=== PATIENT | female | born 1990 | race Caucasian/White ===

== ENCOUNTER 2018-04-28 03:49 | Emergency (ER) | payer OTHER ==
--- NOTE | 2018-04-28 04:02 | PDOC ---
History of Present Illness - General Chief Complaint: Pain, Acute Stated Complaint: ABDOMINAL PAIN Time Seen by Provider: 04/28/18 04:01 - History of Present Illness Initial Comments: 04/28/18 04:26 The patient is a 28 year old female with PMH of left ovarian cyst, gallstones, who presented to ED complaininf of severe abdominal pain that has been present for the past 3 weeks but got significantly worse 3 hours ago. She states that it is located on left side of his body, radiating to mid abdomen and left flank. She vomited multiple times, non bloody non bilious. The patient states that she was recently in one of the hospital in [place] and was told that has stomach ulcers and discharged on Pepsid. She just finished menstrual period, no dysuria, vaginal bleeding, discharge, fever, chills. She denies renal colic in the past, PUD, sexually active with her partner. 04/28/18 04:34 Past History - Past Medical History Allergies/Adverse Reactions: Allergies Allergy/AdvReac Type Severity Reaction Status Date / Time No Known Allergies Allergy Verified 04/28/18 04:15 Home Medications: Ambulatory Orders NK [No Known Home Medication] 04/28/18 Review of Systems - Review of Systems Able to Perform ROS?: Yes Constitutional: Yes: Symptoms Reported, See HPI HEENTM: No: Symptoms Reported Respiratory: No: Symptoms reported Cardiac (ROS): No: Symptoms Reported ABD/GI: Yes: Symptoms Reported, See HPI, Nausea, Vomiting. No: Constipated, Diarrhea Neurological: No: Symptoms reported *Physical Exam - Physical Exam General Appearance: Yes: Nourished, Appropriately Dressed, Apparent Distress HEENT: positive: EOMI, DEMETRICE Respiratory/Chest: positive: Lungs Clear, Normal Breath Sounds. negative: Respiratory Distress Cardiovascular: positive: Regular Rhythm, Regular Rate, S1, S2. negative: Murmur Female Pelvic Exam: positive: normal external exam, normal adnexa, normal size ovaries. negative: discharge, lesions, adnexal tenderness, vaginal bleeding Gastrointestinal/Abdominal: positive: Tender (left upper quadrant), Guarding, Rebound (LUQ), Tenderness Musculoskeletal: positive: CVA Tenderness (on left) Neurologic: positive: instrument inspector II-XII NML intact, Fully Oriented, Motor Strength 5/5 ED Treatment Course - LABORATORY CBC & Chemistry Diagram: 04/28/18 04:47 04/28/18 04:47 Medical Decision Making - Medical Decision Making 04/28/18 04:31 The patient presents to ED complaining of severe abdominal pain. Differential diagnosis includes ovarian torsion, gastric ulcer, perforation, renal colic, gallstones. We ordered CBC, CMP, UA, Urine test. Imaging studies: transvaginal US , CT of her abdomen with IV contrast. She was given one liter of NS, Tylenol IV , Zofran. 04/28/18 04:39 Morphine 4 mg IV for severe pain ordered. 04/28/18 06:29 CT abdomen official read is pending, labs notable for WBC 14.3 *DC/Admit/Observation/Transfer Diagnosis at time of Disposition: Abdominal pain - Referrals - Patient Instructions - Post Discharge Activity
[2018-04-28] MEDS ORDERED: ONDANSETRON 4 MG/2 ML VIAL IVPUSH ONE (04:18)
[2018-04-28] MEDS ORDERED: SODIUM CHLORIDE 0.9% 1000 ML INFUS.BAG IV ONE (04:18)
[2018-04-28 04:19] VITALS: BMI 32.2
[2018-04-28] MEDS ORDERED: ONDANSETRON 4 MG/2 ML VIAL ONE (04:24)
[2018-04-28] MEDS ORDERED: ACETAMINOPHEN 1000 MG/100 ML VIAL (NON FORMULARY) IVPB ONE (04:25)
[2018-04-28] MEDS ORDERED: ACETAMINOPHEN INJECTION 100 ML IVPB ONE (04:25)
--- NOTE | 2018-04-28 04:38 | PDOC ---
Attending Attestation - Resident Resident Name: Pat Arroyo - ED Attending Attestation I have performed the following: I have examined & evaluated the patient, The case was reviewed & discussed with the resident, I agree w/resident's findings & plan
[2018-04-28] MEDS ORDERED: morphine CARPU-JECT 4 MG/1 ML DISP.SYRIN IVPUSH ONE (04:40)
[2018-04-28] MEDS ORDERED: morphine SULFATE 4 MG/ML VIAL ONE (05:06)
[2018-04-28 05:12] LABS: BASO % 0.3 % (0-2.0); EOS % 1.8 % (0-4.5); HEMATOCRIT 44.8 % (32.4-45.2); HEMOGLOBIN 14.8 GM/dL (10.7-15.3); LYMPH % 48.3 % (8-40); MCH 28.3 pg (25.7-33.7); MCHC 33.1 g/dl (32.0-36.0); MEAN CELL VOLUME 85.6 fl (80-96); MONO % 8.6 % (3.8-10.2); PLATELET COUNT 406 K/MM3 (134-434); RBC 5.23 M/mm3 (3.60-5.2); RDW 12.9 % (11.6-15.6); WHITE BLOOD COUNT 14.3 K/mm3 (4.0-10.0)
[2018-04-28 05:33] LABS: ALBUMIN 4.6 g/dl (3.4-5.0); ALK PHOS 61 U/L (45-117); ANION GAP 10 MMOL/L (8-16); BILIRUBIN,TOTAL 0.2 mg/dL (0.2-1); BLOOD UREA NITROGEN 11 mg/dL (7-18); CALCIUM 9.2 mg/dL (8.5-10.1); CHLORIDE 106 mmol/L (98-107); CO2 24 mmol/L (21-32); CREATININE 0.9 mg/dL (0.55-1.3); GLUCOSE,RANDOM 99 mg/dL (74-106); POTASSIUM 3.8 mmol/L (3.5-5.1); SGOT/AST 14 U/L (15-37); SGPT/ALT 20 U/L (13-61); SODIUM 140 mmol/L (136-145); TOT PROT 7.6 g/dl (6.4-8.2)
[2018-04-28] MEDS ORDERED: KETOROLAC TROMETHAMINE 30 MG/1 ML VIAL IVPUSH ONE (06:47)
[2018-04-28] MEDS ORDERED: MAG HYDROX/AL HYDROX/SIMETH 30 ML UNIT-DOSE CUP PO ONE (06:48)
[2018-04-28] MEDS ORDERED: MAG HYDROX/AL HYDROX/SIMETH 30 ML UNIT-DOSE CUP ONE (06:51)
[2018-04-28] MEDS ORDERED: KETOROLAC TROMETHAMINE 30 MG/1 ML VIAL ONE (06:51)
[2018-04-28 07:29] LABS: URINE APPEARANCE CLEAR; URINE BILIRUBIN NEGATIVE (<2.0 mg/dL); URINE COLOR STRAW; URINE GLUCOSE (UA) NEGATIVE (NEGATIVE); URINE KETONE NEGATIVE (NEGATIVE); URINE LEUK ESTERASE NEGATIVE (NEGATIVE); URINE NITRITE NEGATIVE (NEGATIVE); URINE PROTEIN NEGATIVE (NEGATIVE); URINE UROBILINOGEN NEGATIVE mg/dL (0.2-1.0)
[2018-04-28 07:40] LABS: EPI CELLS RARE /HPF (FEW); URINE BACTERIA RARE /hpf (NONE SEEN); URINE MUCUS RARE
[2018-04-28 08:34] VITALS: BP 100/63; PULSE 57; TEMP 97.2
--- NOTE | 2018-04-28 09:16 | PDOC ---
*Physical Exam - Vital Signs Last Vital Signs Temp Pulse Resp BP Pulse Ox 97.2 F L 57 L 18 100/63 98 04/28/18 08:33 04/28/18 08:33 04/28/18 08:33 04/28/18 08:33 04/28/18 08:33 ED Treatment Course - LABORATORY CBC & Chemistry Diagram: 04/28/18 04:47 04/28/18 04:47 - ADDITIONAL ORDERS Additional order review: Laboratory Results 04/28/18 04/28/18 04/28/18 06:45 06:45 04:47 Sodium Potassium Chloride Carbon Dioxide Anion Gap BUN Creatinine Creat Clearance w eGFR Random Glucose Calcium Total Bilirubin AST ALT Alkaline Phosphatase Total Protein Albumin Serum , Qual Negative Urine Color Straw Urine Appearance Clear Urine pH 7.0 Ur Specific [place] 1.035 Urine Protein Negative Urine Glucose (UA) Negative Urine Ketones Negative Urine Blood 2+ H Urine Nitrite Negative Urine Bilirubin Negative Urine Urobilinogen Negative Ur Leukocyte Esterase Negative Urine WBC (Auto) 1 Urine RBC (Auto) <1 Ur Epithelial Cells Rare Urine Bacteria Rare Urine Mucus Rare Urine HCG, Qual Negative 04/28/18 04:47 Sodium 140 Potassium 3.8 Chloride 106 Carbon Dioxide 24 Anion Gap 10 BUN 11 Creatinine 0.9 Creat Clearance w eGFR > 60 Random Glucose 99 Calcium 9.2 Total Bilirubin 0.2 AST 14 L ALT 20 Alkaline Phosphatase 61 Total Protein 7.6 Albumin 4.6 Serum , Qual Urine Color Urine Appearance Urine pH Ur Specific [place] Urine Protein Urine Glucose (UA) Urine Ketones Urine Blood Urine Nitrite Urine Bilirubin Urine Urobilinogen Ur Leukocyte Esterase Urine WBC (Auto) Urine RBC (Auto) Ur Epithelial Cells Urine Bacteria Urine Mucus Urine HCG, Qual 04/28/18 04:47 RBC 5.23 H MCV 85.6 MCHC 33.1 RDW 12.9 MPV 8.0 Neutrophils % 41.0 L Lymphocytes % 48.3 H Monocytes % 8.6 Eosinophils % 1.8 Basophils % 0.3 - Medications Given in the ED: ED Medications Discontinued Medications Generic Name Dose Route Start Last Admin Trade Name Freq PRN Reason Stop Dose Admin Acetaminophen 1,000 mg 04/28/18 04:25 04/28/18 04:34 Ofirmev Injection - IVPB 04/28/18 04:26 1,000 mg ONCE ONE Administration Al Hydroxide/Mg Hydroxide 30 ml 04/28/18 06:48 04/28/18 06:56 Mylanta Oral Suspension - PO 04/28/18 06:49 30 ml ONCE ONE Administration Ketorolac Tromethamine 30 mg 04/28/18 06:47 04/28/18 06:54 Toradol Injection - IVPUSH 04/28/18 06:48 30 mg ONCE ONE Administration Morphine Sulfate 4 mg 04/28/18 04:40 04/28/18 05:35 Morphine Injection - IVPUSH 04/28/18 04:41 4 mg ONCE ONE Administration Ondansetron HCl 4 mg 04/28/18 04:18 04/28/18 04:33 Zofran Injection IVPUSH 04/28/18 04:19 4 mg ONCE ONE Administration Sodium Chloride 1,000 ml 04/28/18 04:18 04/28/18 04:27 Normal Saline - IV 04/28/18 04:19 1,000 ml ONCE ONE Administration Medical Decision Making - Medical Decision Making 04/28/18 09:[address] Phyllis sagastume 28 yo female presents to the ED with 1 month of worsening LUQ abdominal pain. pt abdominal CT shows normal appendix, gallbladder without evidence of obstruction or colitis 2.6 cm bartholin's cyst visualized which is unrelated to todays complaint. Advised to see her CORE MANAGER if this becomes a concern or to come back to the ED if she develops pain in the area. Pt AP improved with tylenol and toradol. Agrees to follow up with PCP and keep her GI appointment May 04 to discuss AP. Motrin 600mg sent to her pharmacy. Strict return precautions given incase of early presentation of appendicitis or other abdominal pathology *DC/Admit/Observation/Transfer Diagnosis at time of Disposition: Abdominal pain Qualifiers: Abdominal location: unspecified location Qualified Code(s): R10.9 - Unspecified abdominal pain - Discharge Dispostion Disposition: HOME Condition at time of disposition: Stable Decision to Admit order: No - Referrals - Patient Instructions Additional Instructions: Please keep your appointment with your GI doctor May 04 and discuss your abdominal pain. Follow up with your primary care doctor within the next 24 -48 hours. Take Motrin 600 mg 3 times a day as needed for pain relief. Please return to the emergency room for new or worsening symptoms including but not limited to: severe abdominal pain not relieved by medications, high fevers, vomiting or generalized weakness. Thank you - Post Discharge Activity
--- NOTE | 2018-04-28 17:10 | EKG ---
Test Reason : Blood Pressure : / mmHG Vent. Rate : 052 BPM Atrial Rate : 052 BPM P-R Int : 148 ms QRS Dur : 088 ms QT Int : 440 ms P-R-T Axes : 064 044 031 degrees QTc Int : 409 ms SINUS BRADYCARDIA NONSPECIFIC T WAVE ABNORMALITY ABNORMAL ECG NO PREVIOUS ECGS AVAILABLE Confirmed by MD EILEEN, TUAN ([id number]) on 04/28/2018 5:10:14 PM Referred By: Confirmed By:TUAN ARELLANO MD
== END 2018-04-28 09:39 | disposition home or self-care (01) ==
LOC: JER 03:49
PROC: 3E033GC Introduction of Other Therapeutic Substance into Peripheral Vein, Percutaneous Approach (ICD-10-PCS; principal; 2018-04-28)
PROC: 3E0333Z Introduction of Anti-inflammatory into Peripheral Vein, Percutaneous Approach (ICD-10-PCS; 2018-04-28)
PROC: 3E033NZ Introduction of Analgesics, Hypnotics, Sedatives into Peripheral Vein, Percutaneous Approach (ICD-10-PCS; 2018-04-28)
PROC: 3E033NZ Introduction of Analgesics, Hypnotics, Sedatives into Peripheral Vein, Percutaneous Approach (ICD-10-PCS; 2018-04-28)
DX: R10.9 Unspecified abdominal pain (principal); N75.0 Cyst of Bartholin's gland
CPT/HCPCS: 36415; 74177-TC; 76830-TC; 80053; 81003; 81015; 84703; 85025; 93005; 93010; 96374; 96375; 99283-25; J0131; J7030

== ENCOUNTER 2018-04-29 02:35 | Emergency (ER) | payer OTHER ==
[2018-04-29 03:02] VITALS: BMI 32.2
[2018-04-29] MEDS ORDERED: KETOROLAC TROMETHAMINE 30 MG/1 ML VIAL IVPUSH ONE (03:26)
[2018-04-29] MEDS ORDERED: SODIUM CHLORIDE 1,000 ML IV STA ×2 (03:26→10:08)
[2018-04-29] MEDS ORDERED: ONDANSETRON 4 MG/2 ML VIAL IVPUSH ONE (03:26)
[2018-04-29] MEDS ORDERED: diazePAM CARPU-JECT 10 MG/2 ML DISP.SYRIN IVPUSH ONE (03:27)
[2018-04-29] MEDS ORDERED: morphine CARPU-JECT 2 MG/1 ML DISP.SYRIN IVPUSH ONE (03:28)
--- NOTE | 2018-04-29 03:45 | PDOC ---
History of Present Illness - General Chief Complaint: Back Pain Stated Complaint: BACK PAIN Time Seen by Provider: 04/29/18 03:11 History Source: Patient, Old Records Exam Limitations: No Limitations - History of Present Illness Initial Comments: 04/29/18 03:28 HISTORY OF PRESENT ILLNESS: This is a 28-year-old female denies medical history presents emergency department for evaluation of left flank pain starting approximately 3:00 on the afternoon of 04/28. Patient states she was laying in bed when she woke up and when she tried to stand the pain came on suddenly which she describes as a sharp pain rated 9/10. States the pain worsens with she moves or walks. She reports the pain radiates down to her left buttock. Patient reports she was seen and evaluated for abdominal pain on the morning of 04/28 for which she states had a negative ultrasound and CAT scan. No recent travel or sick contacts. PAST MEDICAL HISTORY: Denies past medical history SURGICAL HISTORY: Denies ALLERGIES: No known drug allergies REVIEW OF SYSTEMS General/Constitutional: Denies fever or chills. Denies weakness, weight change. HEENT: Denies change in vision. Denies ear pain or discharge. Denies sore throat. Cardiovascular: Denies chest pain or shortness of breath. Respiratory: Denies cough, wheezing, or hemoptysis. Gastrointestinal: Denies vomiting, diarrhea or constipation. Denies rectal bleeding. +nausea. Genitourinary: Denies dysuria, frequency, or change in urination. +left flank pain Musculoskeletal: Denies joint or muscle swelling or pain. Denies neck pain. Skin and breasts: Denies rash or easy bruising. Neurologic: Denies headache, vertigo, loss of consciousness, or loss of sensation. Psychiatric: Denies depression or anxiety. Endocrine: Denies increased thirst. Denies abnormal weight change. Hematologic/Lymphatic: Denies anemia, easy bleeding, or history of blood clots. Allergic/Immunologic: Denies hives or skin allergy. Denies latex allergy. PHYSICAL EXAM General Appearance: Well-appearing, appropriately dressed. No apparent distress , no intoxication. Respiratory/Chest: Lungs CTAB. No shortness of breath, chest tenderness, respiratory distress, accessory muscle use. No crackles, rales, rhonchi, stridor , wheezing, dullness Cardiovascular: RRR. S1, S2. No JVD, murmur, bradycardia, tachycardia. Gastrointestinal/Abdominal: Normal bowel sounds. Obese abdomen soft, non- distended. Diffuse tenderness worse in LUQ and suprapubic area. No organomegaly , pulsatile mass, guarding, hernia, hepatomegaly, splenomegaly. Musculoskeletal/Extremities: Normal inspection. FROM of all extremities, normal capillary refill. Pelvis Stable. Left CVA tenderness. No tenderness to extremities, pedal edema, swelling, erythema or deformity. No palpable muscle spasms present. Increased pain elicited with flexion of left hip. Neurologic: cocoa roaster II-XII intact. Fully oriented, alert. Appropriate mood/affect. Motor strength 5/5. No appreciable EOM palsy, facial droop or sensory deficit. Past History - Past Medical History Allergies/Adverse Reactions: Allergies Allergy/AdvReac Type Severity Reaction Status Date / Time No Known Allergies Allergy Verified 04/29/18 03:02 Home Medications: Ambulatory Orders Ibuprofen [Motrin -] 600 mg PO TID #30 tablet 04/28/18 COPD: No CHF: No - Surgical History Appendectomy: No Cholecystectomy: No Neurologic Surgery: No - Immunization History Immunization Up to Date: No - Suicide/Smoking/Psychosocial Hx Smoking History: Never smoked Have you smoked in the past 12 months: No Hx Alcohol Use: No Drug/Substance Use Hx: No Substance Use Type: None *Physical Exam - Vital Signs Last Vital Signs Temp Pulse Resp BP Pulse Ox 99.0 F 80 18 118/75 99 04/29/18 03:00 04/29/18 03:00 04/29/18 03:00 04/29/18 03:00 04/29/18 03:00 Moderate Sedation - Procedure Monitoring Vital Signs: Procedure Monitoring Vital Signs Temperature 99.0 F 04/29/18 03:00 Pulse Rate 80 04/29/18 03:00 Respiratory Rate 18 04/29/18 03:00 Blood Pressure 118/75 04/29/18 03:00 O2 Sat by Pulse Oximetry (%) 99 04/29/18 03:00 ED Treatment Course - LABORATORY CBC & Chemistry Diagram: 04/29/18 04:10 04/29/18 04:10 Medical Decision Making - Medical Decision Making 04/29/18 03:45 A/P: 28-year-old female with sudden onset left flank pain radiating to her Left CVA tenderness Normoactive bowel sounds Abdomen diffusely tender worse in the left upper quadrant and suprapubic Patient had normal transvaginal ultrasound and CT abdomen and pelvis on 04/28. DDx: Gerd, pancreatitis, UTI, renal stone, gastritis, MSK NPO,urine, blood, analgesia, reevaluation 04/29/18 06:55 Pt signed out to MICK Gleason. *DC/Admit/Observation/Transfer Diagnosis at time of Disposition: Abdominal pain - Discharge Dispostion Disposition: HOME Condition at time of disposition: Improved - Referrals Referrals: Jacky Lugo MD [Staff Physician] - Mary Cordova MD [Staff Physician] - - Patient Instructions Printed Discharge Instructions: DI for Abdominal Pain-Adult Additional Instructions: Discharge Instructions: -The cat scan of your abdomen was normal -Please follow up with your regular doctor and stomach doctor tomorrow -Return to the ER with any worsening or concerning symptoms - Post Discharge Activity
[2018-04-29] MEDS ORDERED: KETOROLAC TROMETHAMINE 30 MG/1 ML VIAL ONE (03:54)
[2018-04-29] MEDS ORDERED: MORPHINE SULFATE 2 MG/ML VIAL ONE (03:54)
[2018-04-29] MEDS ORDERED: ONDANSETRON 4 MG/2 ML VIAL ONE (03:55)
[2018-04-29 04:42] LABS: BASO % 0.3 % (0-2.0); EOS % 2.3 % (0-4.5); HEMATOCRIT 40.4 % (32.4-45.2); HEMOGLOBIN 14.4 GM/dL (10.7-15.3); LYMPH % 48.6 % (8-40); MCHC 35.5 g/dl (32.0-36.0); MEAN CELL VOLUME 84.4 fl (80-96); MEAN PLT VOLUME 8.2 fl (7.5-11.1); MONO % 7.9 % (3.8-10.2); NEUT % 40.9 % (42.8-82.8); PLATELET COUNT 399 K/MM3 (134-434); RBC 4.79 M/mm3 (3.60-5.2); RDW 12.7 % (11.6-15.6); WHITE BLOOD COUNT 10.4 K/mm3 (4.0-10.0)
[2018-04-29 04:44] LABS: URINE APPEARANCE CLEAR; URINE BILIRUBIN NEGATIVE (<2.0 mg/dL); URINE COLOR LTYELLOW; URINE GLUCOSE (UA) NEGATIVE (NEGATIVE); URINE KETONE NEGATIVE (NEGATIVE); URINE LEUK ESTERASE NEGATIVE (NEGATIVE); URINE NITRITE NEGATIVE (NEGATIVE); URINE PROTEIN NEGATIVE (NEGATIVE); URINE UROBILINOGEN NEGATIVE mg/dL (0.2-1.0)
[2018-04-29] MEDS ORDERED: morphine CARPU-JECT 4 MG/1 ML DISP.SYRIN IVPUSH ONE (04:47)
[2018-04-29] MEDS ORDERED: morphine SULFATE 4 MG/ML VIAL ONE (04:49)
[2018-04-29 04:53] LABS: EPI CELLS RARE /HPF (FEW); URINE MUCUS RARE
[2018-04-29 05:51] LABS: ALBUMIN 3.7 g/dl (3.4-5.0); ALK PHOS 49 U/L (45-117); ANION GAP 7 MMOL/L (8-16); BILIRUBIN,TOTAL 0.2 mg/dL (0.2-1); BLOOD UREA NITROGEN 13 mg/dL (7-18); CHLORIDE 108 mmol/L (98-107); CO2 26 mmol/L (21-32); CREATININE 0.7 mg/dL (0.55-1.3); GLUCOSE,RANDOM 72 mg/dL (74-106); LIPASE 139 U/L (73-393); POTASSIUM 4.5 mmol/L (3.5-5.1); SGOT/AST 14 U/L (15-37); SGPT/ALT 16 U/L (13-61); SODIUM 140 mmol/L (136-145)
--- NOTE | 2018-04-29 08:09 | PDOC ---
ED Treatment Course - LABORATORY CBC & Chemistry Diagram: 04/29/18 04:10 04/29/18 04:10 - ADDITIONAL ORDERS Additional order review: Laboratory Results 04/29/18 04/29/18 04:10 04:10 Sodium 140 Potassium 4.5 Chloride 108 H Carbon Dioxide 26 Anion Gap 7 L BUN 13 Creatinine 0.7 Creat Clearance w eGFR > 60 Random Glucose 72 L Calcium 9.0 Total Bilirubin 0.2 AST 14 L ALT 16 Alkaline Phosphatase 49 Total Protein 6.0 L Albumin 3.7 Lipase 139 Urine Color Ltyellow Urine Appearance Clear Urine pH 6.0 Ur Specific [place] 1.018 Urine Protein Negative Urine Glucose (UA) Negative Urine Ketones Negative Urine Blood 2+ H Urine Nitrite Negative Urine Bilirubin Negative Urine Urobilinogen Negative Ur Leukocyte Esterase Negative Urine WBC (Auto) 2 Urine RBC (Auto) 1 Ur Epithelial Cells Rare Urine Mucus Rare 04/29/18 04:10 RBC 4.79 MCV 84.4 MCHC 35.5 RDW 12.7 MPV 8.2 Neutrophils % 40.9 L Lymphocytes % 48.6 H Monocytes % 7.9 Eosinophils % 2.3 Basophils % 0.3 - Medications Given in the ED: ED Medications Discontinued Medications Generic Name Dose Route Start Last Admin Trade Name Freq PRN Reason Stop Dose Admin Diazepam 5 mg 04/29/18 03:27 04/29/18 03:30 Valium Injection - IVPUSH 04/29/18 03:28 Not Given ONCE ONE Sodium Chloride 1,000 mls @ 1,000 mls/hr 04/29/18 03:26 04/29/18 03:45 Normal Saline - IV 04/29/18 04:25 1,000 mls/hr ASDIR STA Administration Ketorolac Tromethamine 30 mg 04/29/18 03:26 04/29/18 03:30 Toradol Injection - IVPUSH 04/29/18 03:27 Not Given ONCE ONE Morphine Sulfate 2 mg 04/29/18 03:28 04/29/18 03:45 Morphine Injection - IVPUSH 04/29/18 03:29 2 mg ONCE ONE Administration Morphine Sulfate 4 mg 04/29/18 04:47 04/29/18 04:53 Morphine Injection - IVPUSH 04/29/18 04:48 4 mg ONCE ONE Administration Ondansetron HCl 4 mg 04/29/18 03:26 04/29/18 03:45 Zofran Injection IVPUSH 04/29/18 03:27 4 mg ONCE ONE Administration <Ling Madsen - Last Filed: 04/29/18 09:34> - LABORATORY CBC & Chemistry Diagram: 04/29/18 04:10 04/29/18 04:10 - ADDITIONAL ORDERS Additional order review: Laboratory Results 04/29/18 04/29/18 04:10 04:10 Sodium 140 Potassium 4.5 Chloride 108 H Carbon Dioxide 26 Anion Gap 7 L BUN 13 Creatinine 0.7 Creat Clearance w eGFR > 60 Random Glucose 72 L Calcium 9.0 Total Bilirubin 0.2 AST 14 L ALT 16 Alkaline Phosphatase 49 Total Protein 6.0 L Albumin 3.7 Lipase 139 Urine Color Ltyellow Urine Appearance Clear Urine pH 6.0 Ur Specific [place] 1.018 Urine Protein Negative Urine Glucose (UA) Negative Urine Ketones Negative Urine Blood 2+ H Urine Nitrite Negative Urine Bilirubin Negative Urine Urobilinogen Negative Ur Leukocyte Esterase Negative Urine WBC (Auto) 2 Urine RBC (Auto) 1 Ur Epithelial Cells Rare Urine Mucus Rare 04/29/18 04:10 RBC 4.79 MCV 84.4 MCHC 35.5 RDW 12.7 MPV 8.2 Neutrophils % 40.9 L Lymphocytes % 48.6 H Monocytes % 7.9 Eosinophils % 2.3 Basophils % 0.3 - Medications Given in the ED: ED Medications Discontinued Medications Generic Name Dose Route Start Last Admin Trade Name Freq PRN Reason Stop Dose Admin Diazepam 5 mg 04/29/18 03:27 04/29/18 03:30 Valium Injection - IVPUSH 04/29/18 03:28 Not Given ONCE ONE Sodium Chloride 1,000 mls @ 1,000 mls/hr 04/29/18 03:26 04/29/18 03:45 Normal Saline - IV 04/29/18 04:25 1,000 mls/hr ASDIR STA Administration Ketorolac Tromethamine 30 mg 04/29/18 03:26 04/29/18 03:30 Toradol Injection - IVPUSH 04/29/18 03:27 Not Given ONCE ONE Morphine Sulfate 2 mg 04/29/18 03:28 04/29/18 03:45 Morphine Injection - IVPUSH 04/29/18 03:29 2 mg ONCE ONE Administration Morphine Sulfate 4 mg 04/29/18 04:47 04/29/18 04:53 Morphine Injection - IVPUSH 04/29/18 04:48 4 mg ONCE ONE Administration Ondansetron HCl 4 mg 04/29/18 03:26 04/29/18 03:45 Zofran Injection IVPUSH 04/29/18 03:27 4 mg ONCE ONE Administration <Corinna Gleason - Last Filed: 04/29/18 12:05> Progress Note - Progress Note Progress Note: I have received report from AUBREE Ann regarding this patient. Pt's initial chief complaint: left flank pain and worsened abdominal pain Pt's work up completed prior to sign out: labs Pt treatment given from prior staff: Valium, toradol, morphine, IVF, zofran Pt plan to be completed: awaiting CT scan results Dispo: Pending <Corinna Gleason - Last Filed: 04/29/18 12:05> Medical Decision Making - Medical Decision Making The patient was seen and evaluated in conjunction with midlevel provider under my direct supervision, ancillary studies were reviewed. I agree with the plan as outlined by MICK Cervantes. HPI as outlined. signed out from Dr Coyle pending repeat CT w/ PO and IV contrast. as she had CT with loops of bowel/?obstruction and bartholins cyst. repeat CT today without e/o obstruction or intra abdominal pathology vitals stable, wnl. labs and lytes unremarkable. anticipate DC in stable condition,r eturn precautions and PMD followup 04/29/18 09:34 04/29/18 09:35 <Ling Madsen - Last Filed: 04/29/18 09:34> - Medical Decision Making A/P: 28 y/o female with left flank pain since last night. She also has worsened abd pain and states her CT scan that she had yesterday revealed possible early obstruction. Labs unremarkable. Awaiting results of CT scan. CT abd/pelvis IMPRESSION: No longer visualization of transient SBO. No ileus or bowel obstruction. Gave patient the results. Will discharge to home with supportive care instructions and f/u with her PMD and GI. The patient verbalizes understanding of all instructions, has no further questions and is awaiting discharge. <Corinna Gleason - Last Filed: 04/29/18 12:05> *DC/Admit/Observation/Transfer <Ling Madsen - Last Filed: 04/29/18 09:34> <Corinna Gleason - Last Filed: 04/29/18 12:05> Diagnosis at time of Disposition: Abdominal pain - Discharge Dispostion Disposition: HOME Condition at time of disposition: Improved - Referrals Referrals: Mary Cordova MD [Staff Physician] - Jacky Lugo MD [Staff Physician] - - Patient Instructions Printed Discharge Instructions: DI for Abdominal Pain-Adult Additional Instructions: Discharge Instructions: -The cat scan of your abdomen was normal -Please follow up with your regular doctor and stomach doctor tomorrow -Return to the ER with any worsening or concerning symptoms
[2018-04-29 10:05] VITALS: PULSE 55
[2018-04-29 12:01] VITALS: BP 93/55; TEMP 98.1
== END 2018-04-29 12:26 | disposition home or self-care (01) ==
LOC: JER 02:35
PROC: 3E033NZ Introduction of Analgesics, Hypnotics, Sedatives into Peripheral Vein, Percutaneous Approach (ICD-10-PCS; principal; 2018-04-29)
PROC: 3E033GC Introduction of Other Therapeutic Substance into Peripheral Vein, Percutaneous Approach (ICD-10-PCS; 2018-04-29)
PROC: 3E0337Z Introduction of Electrolytic and Water Balance Substance into Peripheral Vein, Percutaneous Approach (ICD-10-PCS; 2018-04-29)
DX: R10.9 Unspecified abdominal pain (principal)
CPT/HCPCS: 36415; 74176-TC; 80053; 81003; 81015; 83690; 85025; 87086; 96361; 96374; 96375; 96376; 99282-25; J7030

== ENCOUNTER 2018-08-06 09:50 | Emergency (ER) | payer OTHER ==
[2018-08-06 10:18] VITALS: BP 100/60; PULSE 80; TEMP 98.7; BMI 30.4
--- NOTE | 2018-08-06 11:57 | PDOC ---
History of Present Illness - General Chief Complaint: SIRS, Suspected/Possible Stated Complaint: 2 MONTH PREG / FLU SYMPTOMS Time Seen by Provider: 08/06/18 11:39 - History of Present Illness Initial Comments: 08/06/18 11:56 28-year-old 6 week gravid female with flulike symptoms times one day Past History - Past Medical History Allergies/Adverse Reactions: Allergies Allergy/AdvReac Type Severity Reaction Status Date / Time No Known Allergies Allergy Verified 08/06/18 10:13 Home Medications: Ambulatory Orders NK [No Known Home Medication] 08/06/18 COPD: No CHF: No - Surgical History Appendectomy: No Cholecystectomy: No Neurologic Surgery: No - Immunization History Immunization Up to Date: No - Suicide/Smoking/Psychosocial Hx Smoking History: Never smoked Have you smoked in the past 12 months: No Information on smoking cessation initiated: No Hx Alcohol Use: No Drug/Substance Use Hx: No Substance Use Type: None Review of Systems - Review of Systems Constitutional: Yes: Chills, Fever, Malaise, Night Sweats HEENTM: Yes: Nose Congestion Respiratory: Yes: Cough *Physical Exam - Vital Signs Last Vital Signs Temp Pulse Resp BP Pulse Ox 98.7 F 80 20 100/60 100 08/06/18 10:15 08/06/18 10:15 08/06/18 10:15 08/06/18 10:15 08/06/18 10:15 - Physical Exam Comments: 08/06/18 11:57 HEAD: NC/AT EYES: Conjuntiva clear Ears: Canals and TM's normal NOSE: No d/c THROAT: Moist mucous membrances, oral pharanx clear, uvula midline NECK: Supple without adenopathy CARDIAC: S1 S2 LUNGS: CTA Full and Equal breath sounds ABDOMEN: Soft NT ND MS: Full ROM in all joints without edema NEUROLOGIC: No gross sensory or motor deficits, NVID SKIN: Normal color and temperature no lesions or rashes Moderate Sedation - Procedure Monitoring Vital Signs: Procedure Monitoring Vital Signs Temperature 98.7 F 08/06/18 10:15 Pulse Rate 80 08/06/18 10:15 Respiratory Rate 20 08/06/18 10:15 Blood Pressure 100/60 08/06/18 10:15 O2 Sat by Pulse Oximetry (%) 100 08/06/18 10:15 Medical Decision Making - Medical Decision Making Flu negative most likely an upper respiratory infection viral, will have patient follow-up with PCP *DC/Admit/Observation/Transfer Diagnosis at time of Disposition: Viral URI - Discharge Dispostion Disposition: HOME Condition at time of disposition: Stable Decision to Admit order: No - Referrals Referrals: Tommy Sotelo [Non Staff, Medical] - - Patient Instructions Additional Instructions: Return to the emergency room for worsening symptoms. It's very important you to keep her fever down. Please take Tylenol as directed for fever. Follow-up with your primary care physician as well as her campaign management specialist for further evaluation and treatment options. Do not take any anti-inflammatory such as Advil Motrin ibuprofen or Aleve. Only Tylenol for fever. - Post Discharge Activity
== END 2018-08-06 12:42 | disposition home or self-care (01) ==
LOC: JERFT 09:50
DX: O99.89 Other specified diseases and conditions complicating pregnancy, childbirth and the puerperium (principal); J06.9 Acute upper respiratory infection, unspecified; Z3A.01 Less than 8 weeks gestation of pregnancy
CPT/HCPCS: 87804; 99281-25

== ENCOUNTER 2022-09-22 04:16 | Day surgery (SDC) | payer OTHER ==
[2022-09-21 14:45] VITALS: BMI 37.0
[2022-09-22 13:22] VITALS: TEMP 98
[2022-09-22 13:50] VITALS: BP 100/58; PULSE 62; RESP 17
== END 2022-09-22 14:50 | disposition home or self-care (01) ==
LOC: JASU-ENDO 04:16
PROVIDERS: ATTEND Internal Medicine Gastroenterology
PROC: 0DB78ZX Excision of Stomach, Pylorus, Via Natural or Artificial Opening Endoscopic, Diagnostic (ICD-10-PCS; 2022-09-22)
PROC: 0DB68ZX Excision of Stomach, Via Natural or Artificial Opening Endoscopic, Diagnostic (ICD-10-PCS; principal; 2022-09-22 12:00)
DX: K29.50 Unspecified chronic gastritis without bleeding (principal); Z01.818 Encounter for other preprocedural examination
CPT/HCPCS: 81025; 88305-TC; 88342-TC

== ENCOUNTER 2022-10-16 17:48 | Emergency (ER) | payer OTHER ==
[2022-10-16 18:06] VITALS: BP 110/68; PULSE 80; RESP 18; TEMP 98; BMI 37.7
== END 2022-10-16 21:12 | disposition home or self-care (01) ==
LOC: JERFT 17:48
DX: M54.50 Low back pain, unspecified (principal)
CPT/HCPCS: 72131-TC; 84703; 99284-25